=== PATIENT | male | born 1970 | race Caucasian/White ===

== ENCOUNTER 2019-07-08 11:36 | Emergency (ER) | payer OTHER ==
[~2019-07-08] VITALS: Ht 175.3 cm; Wt 124.3 kg
[2019-07-08 11:40] VITALS: Ht 175.3 cm; Wt 124.3 kg
[2019-07-08 13:05] VITALS: BP 157/86
== END 2019-07-08 13:05 | disposition home or self-care (01) ==
LOC: ED 11:36
DX: J45.901 Unspecified asthma with (acute) exacerbation (principal); I10 Essential (primary) hypertension; Z90.89 Acquired absence of other organs
CPT/HCPCS: J7620